=== PATIENT | female | born 1935 | race Caucasian/White ===

== ENCOUNTER 2018-05-16 03:26 | Inpatient (IN) | payer MEDICARE, OTHER ==
[2018-05-16] MEDS ORDERED: morphine 2 MG INJ IV (07:00)
[2018-05-16] MEDS ORDERED: NACL 0.9% 3 ML SYG IV (07:00)
[2018-05-16] MEDS ORDERED: ALBUTEROL/IPRATROPIUM (NEB) 3 ML AMP HHN (07:00)
[2018-05-16] MEDS: DEXTROSE 5%-0.45% NACL 1,000 ML IV ×2 (07:38→16:33)
[2018-05-16 08:18] LABS: ADD MAN DIFF? NO
[2018-05-16 08:25] LABS: WHITE BLOOD COUNT 4.2 10^3/ul (4.8-10.8)
[2018-05-16 08:25] LABS: EOSINOPHILS # 0.1 10^3/ul (0.0-0.5); EOSINOPHILS % 3.4 % (0.0-7.0); HEMATOCRIT 33.5 % (37.0-47.0); HEMOGLOBIN 10.9 g/dl (12.0-16.0); LYMPHOCYTES # 0.7 10^3/ul (0.8-2.9); MEAN CORPUSCULAR HEMOGLOBIN 30.4 pg (29.0-33.0); MEAN CORPUSCULAR HGB CONC 32.5 g/dl (32.0-37.0); MEAN CORPUSCULAR VOLUME 93.6 fl (82.0-101.0); MEAN PLATELET VOLUME 10.2 fl (7.4-10.4); MONOCYTE # 0.6 10^3/ul (0.3-0.9); MONOCYTES % 13.9 % (0.0-11.0); NEUTROPHIL # 2.7 10^3/ul (1.6-7.5); NEUTROPHILS % 64.2 % (39.0-77.0); PLATELET COUNT 187 10^3/UL (140-415); RED BLOOD COUNT 3.58 10^6/ul (4.20-5.40); RED CELL DISTRIBUTION WIDTH 12.7 % (11.5-14.5)
[2018-05-16] MEDS: FAMOTIDINE 20 MG INJ IV ×2 (08:41→21:24)
[2018-05-16] MEDS ORDERED: VITAMIN A & D 5 GM OINT PACKET TOP (08:45)
[2018-05-16 08:54] LABS: ALANINE AMINOTRANSFERASE 97 IU/L (13-69); ALBUMIN 2.9 g/dl (3.3-4.9); ALBUMIN/GLOBULIN RATIO 0.96; ALKALINE PHOSPHATASE 111 IU/L (42-121); ANION GAP 12 (8-16); ASPARTATE AMINO TRANSFERASE 161 IU/L (15-46); BILIRUBIN,INDIRECT 0.6 mg/dl (0-1.1); BILIRUBIN,TOTAL 0.6 mg/dl (0.2-1.3); BLOOD UREA NITROGEN 25 mg/dl (7-20); CALCIUM 8.4 mg/dl (8.4-10.2); CARBON DIOXIDE 27 mmol/L (21-31); CHLORIDE 104 mmol/L (97-110); CREATININE 1.18 mg/dl (0.44-1.00); GLUCOSE 113 mg/dl (70-220); PHOSPHORUS 3.4 mg/dl (2.5-4.9); POTASSIUM 3.2 mmol/L (3.5-5.1); SODIUM 140 mmol/L (135-144); TOTAL PROTEIN 5.9 g/dl (6.1-8.1)
[2018-05-16] MEDS ORDERED: OXYCODONE/ACETAMINOPHEN (5/325) TAB PO ×2 (16:30)
[2018-05-16] MEDS ORDERED: hydrALAzine 20 MG INJ IV (16:30)
[2018-05-16] MEDS ORDERED: EPHEDrine SULFATE 50 MG/5 ML SYG IV (16:30)
[2018-05-16] MEDS ORDERED: LABETALOL HCL 20MG INJ IV (16:30)
[2018-05-16] MEDS ORDERED: METOCLOPRAMIDE 10 MG INJ IV (16:30)
[2018-05-16] MEDS ORDERED: MEPERIDINE 25 MG INJ IV (16:30)
[2018-05-16] MEDS ORDERED: MIDAZOLAM 1 MG/ML 2 ML INJ IV (16:30)
[2018-05-16] MEDS ORDERED: DIPHENHYDRAMINE 50 MG INJ IV (16:30)
[2018-05-16] MEDS ORDERED: ONDANSETRON 4 MG INJ IV (16:30)
[2018-05-16] MEDS ORDERED: FENTAnyl 50 MCG/ML VIAL IV ×3 (16:30)
[2018-05-16] MEDS ORDERED: METOPROLOL 5 MG INJ IV (19:30)
[2018-05-16 19:52] LABS: INR 0.98; PROTIME 13.1 Sec (11.9-14.9)
[2018-05-16] MEDS: DIGOXIN 500 MCG INJ IV (21:19)
[2018-05-16] MEDS: ENOXAPARIN 80 MG/0.8 ML SYG SC (21:42)
[2018-05-16] MEDS: METOPROLOL 5 MG INJ IV (23:16)
[2018-05-17] MEDS: DIGOXIN 500 MCG INJ IV ×3 (01:44→13:00)
[2018-05-17 01:46] LABS: TROPONIN-I 0.053 ng/ml (0.000-0.120)
[2018-05-17] MEDS: POTASSIUM CHLORIDE 100 ML IVPB (01:51)
[2018-05-17] MEDS: DEXTROSE 5%-0.45% NACL 1,000 ML IV ×5 (01:53→23:50)
[2018-05-17 06:22] LABS: ADD MAN DIFF? NO
[2018-05-17 06:32] LABS: BASOPHILS % 0.2 % (0.0-2.0); HEMATOCRIT 36.8 % (37.0-47.0); HEMOGLOBIN 12.1 g/dl (12.0-16.0); LYMPHOCYTES # 0.7 10^3/ul (0.8-2.9); LYMPHOCYTES % 5.5 % (15.0-51.0); MEAN CORPUSCULAR HEMOGLOBIN 30.6 pg (29.0-33.0); MEAN CORPUSCULAR HGB CONC 32.9 g/dl (32.0-37.0); MEAN CORPUSCULAR VOLUME 92.9 fl (82.0-101.0); MEAN PLATELET VOLUME 10.3 fl (7.4-10.4); MONOCYTE # 0.7 10^3/ul (0.3-0.9); MONOCYTES % 5.1 % (0.0-11.0); NEUTROPHIL # 11.6 10^3/ul (1.6-7.5); NEUTROPHILS % 88.8 % (39.0-77.0); PLATELET COUNT 204 10^3/UL (140-415); RED BLOOD COUNT 3.96 10^6/ul (4.20-5.40)
[2018-05-17 06:32] LABS: WHITE BLOOD COUNT 13.1 10^3/ul (4.8-10.8)
[2018-05-17 06:54] LABS: INR 1.14; PROTIME 14.8 Sec (11.9-14.9); PT RATIO 1.2
[2018-05-17 07:09] LABS: ANION GAP 12 (8-16); BLOOD UREA NITROGEN 18 mg/dl (7-20); CALCIUM 8.6 mg/dl (8.4-10.2); CARBON DIOXIDE 25 mmol/L (21-31); CHLORIDE 107 mmol/L (97-110); CREATININE 1.14 mg/dl (0.44-1.00); GLUCOSE 141 mg/dl (70-220); MAGNESIUM 1.6 mg/dl (1.7-2.5); PHOSPHORUS 2.9 mg/dl (2.5-4.9); POTASSIUM 4.3 mmol/L (3.5-5.1); SODIUM 140 mmol/L (135-144)
[2018-05-17 07:11] LABS: TROPONIN-I 0.076 ng/ml (0.000-0.120)
[2018-05-17] MEDS: FAMOTIDINE 20 MG INJ IV ×2 (08:17→20:42)
[2018-05-17] MEDS: ENOXAPARIN 80 MG/0.8 ML SYG SC ×2 (08:40→20:43)
[2018-05-17] MEDS: IOHEXOL 14.3 MG(I)/ML (ADULT) BTL PO (11:35)
[2018-05-17] MEDS: MAGNESIUM SULFATE 2 GM/50 ML 50 ML IVPB (11:47)
[2018-05-17 15:15] LABS: TROPONIN-I 0.062 ng/ml (0.000-0.120)
[2018-05-18 07:03] LABS: ADD MAN DIFF? NO
[2018-05-18 07:17] LABS: WHITE BLOOD COUNT 5.1 10^3/ul (4.8-10.8)
[2018-05-18 07:17] LABS: BASOPHILS % 0.8 % (0.0-2.0); EOSINOPHILS # 0.1 10^3/ul (0.0-0.5); EOSINOPHILS % 2.2 % (0.0-7.0); HEMATOCRIT 32.9 % (37.0-47.0); HEMOGLOBIN 10.6 g/dl (12.0-16.0); LYMPHOCYTES # 0.8 10^3/ul (0.8-2.9); LYMPHOCYTES % 16.1 % (15.0-51.0); MEAN CORPUSCULAR HEMOGLOBIN 30.5 pg (29.0-33.0); MEAN CORPUSCULAR HGB CONC 32.2 g/dl (32.0-37.0); MEAN CORPUSCULAR VOLUME 94.5 fl (82.0-101.0); MEAN PLATELET VOLUME 10.4 fl (7.4-10.4); MONOCYTE # 0.5 10^3/ul (0.3-0.9); MONOCYTES % 9.4 % (0.0-11.0); NEUTROPHIL # 3.6 10^3/ul (1.6-7.5); NEUTROPHILS % 71.3 % (39.0-77.0); PLATELET COUNT 188 10^3/UL (140-415); RED BLOOD COUNT 3.48 10^6/ul (4.20-5.40)
[2018-05-18] MEDS: ONDANSETRON 4 MG INJ (07:29)
[2018-05-18] MEDS: hydrALAzine 20 MG INJ (07:29)
[2018-05-18] MEDS: PROPOFOL 20 ML (07:29)
[2018-05-18] MEDS: NEOSTIGMINE 3 MG/3 ML SYRINGE (07:29)
[2018-05-18 07:50] LABS: ANION GAP 11 (8-16); BLOOD UREA NITROGEN 17 mg/dl (7-20); CALCIUM 8.2 mg/dl (8.4-10.2); CARBON DIOXIDE 24 mmol/L (21-31); CHLORIDE 109 mmol/L (97-110); CREATININE 1.16 mg/dl (0.44-1.00); GLUCOSE 116 mg/dl (70-220); MAGNESIUM 2.2 mg/dl (1.7-2.5); PHOSPHORUS 2.6 mg/dl (2.5-4.9); POTASSIUM 3.5 mmol/L (3.5-5.1); SODIUM 140 mmol/L (135-144)
[2018-05-18] MEDS: FAMOTIDINE 20 MG INJ IV ×2 (08:29→20:07)
[2018-05-18] MEDS: DEXTROSE 5%-0.45% NACL 1,000 ML IV ×2 (08:30→20:07)
[2018-05-18] MEDS: ENOXAPARIN 80 MG/0.8 ML SYG SC ×2 (08:36→20:09)
[2018-05-19] MEDS: DEXTROSE 5%-0.45% NACL 1,000 ML IV ×2 (05:39→15:10)
[2018-05-19 06:00] LABS: ADD MAN DIFF? NO
[2018-05-19 06:10] LABS: BASOPHILS % 0.7 % (0.0-2.0); EOSINOPHILS # 0.2 10^3/ul (0.0-0.5); EOSINOPHILS % 4.8 % (0.0-7.0); HEMATOCRIT 34.3 % (37.0-47.0); HEMOGLOBIN 11.1 g/dl (12.0-16.0); LYMPHOCYTES # 1.1 10^3/ul (0.8-2.9); LYMPHOCYTES % 24.9 % (15.0-51.0); MEAN CORPUSCULAR HEMOGLOBIN 30.2 pg (29.0-33.0); MEAN CORPUSCULAR HGB CONC 32.4 g/dl (32.0-37.0); MEAN CORPUSCULAR VOLUME 93.2 fl (82.0-101.0); MEAN PLATELET VOLUME 10.2 fl (7.4-10.4); MONOCYTE # 0.4 10^3/ul (0.3-0.9); MONOCYTES % 10.1 % (0.0-11.0); NEUTROPHIL # 2.6 10^3/ul (1.6-7.5); PLATELET COUNT 195 10^3/UL (140-415); RED BLOOD COUNT 3.68 10^6/ul (4.20-5.40); RED CELL DISTRIBUTION WIDTH 12.8 % (11.5-14.5)
[2018-05-19 06:10] LABS: WHITE BLOOD COUNT 4.3 10^3/ul (4.8-10.8)
[2018-05-19 06:29] LABS: ANION GAP 11 (8-16); BLOOD UREA NITROGEN 12 mg/dl (7-20); CALCIUM 8.5 mg/dl (8.4-10.2); CARBON DIOXIDE 22 mmol/L (21-31); CHLORIDE 112 mmol/L (97-110); CREATININE 1.02 mg/dl (0.44-1.00); GLUCOSE 99 mg/dl (70-220); POTASSIUM 3.7 mmol/L (3.5-5.1); SODIUM 141 mmol/L (135-144)
[2018-05-19] MEDS: FAMOTIDINE 20 MG INJ IV ×2 (08:49→20:51)
[2018-05-19] MEDS: ENOXAPARIN 80 MG/0.8 ML SYG SC ×2 (08:54→21:00)
[2018-05-19] MEDS: hydrALAzine 20 MG INJ IV ×2 (12:15→18:11)
[2018-05-20] MEDS: DEXTROSE 5%-0.45% NACL 1,000 ML IV ×3 (01:07→12:42)
[2018-05-20 07:16] LABS: ADD MAN DIFF? NO
[2018-05-20 07:20] LABS: BASOPHILS % 0.5 % (0.0-2.0); EOSINOPHILS # 0.2 10^3/ul (0.0-0.5); EOSINOPHILS % 3.6 % (0.0-7.0); HEMATOCRIT 34.3 % (37.0-47.0); HEMOGLOBIN 11.3 g/dl (12.0-16.0); LYMPHOCYTES % 23.1 % (15.0-51.0); MEAN CORPUSCULAR HEMOGLOBIN 30.4 pg (29.0-33.0); MEAN CORPUSCULAR HGB CONC 32.9 g/dl (32.0-37.0); MEAN CORPUSCULAR VOLUME 92.2 fl (82.0-101.0); MEAN PLATELET VOLUME 10.4 fl (7.4-10.4); MONOCYTE # 0.5 10^3/ul (0.3-0.9); MONOCYTES % 10.8 % (0.0-11.0); NEUTROPHIL # 2.6 10^3/ul (1.6-7.5); NEUTROPHILS % 61.8 % (39.0-77.0); PLATELET COUNT 214 10^3/UL (140-415); RED BLOOD COUNT 3.72 10^6/ul (4.20-5.40); RED CELL DISTRIBUTION WIDTH 13.1 % (11.5-14.5)
[2018-05-20 07:20] LABS: WHITE BLOOD COUNT 4.2 10^3/ul (4.8-10.8)
[2018-05-20 07:52] LABS: ANION GAP 11 (8-16); BLOOD UREA NITROGEN 7 mg/dl (7-20); CALCIUM 8.4 mg/dl (8.4-10.2); CARBON DIOXIDE 21 mmol/L (21-31); CHLORIDE 112 mmol/L (97-110); CREATININE 0.92 mg/dl (0.44-1.00); GLUCOSE 101 mg/dl (70-220); POTASSIUM 3.4 mmol/L (3.5-5.1); SODIUM 141 mmol/L (135-144)
[2018-05-20] MEDS: FAMOTIDINE 20 MG INJ IV ×2 (08:28→21:29)
[2018-05-20] MEDS: hydrALAzine 20 MG INJ IV ×2 (08:33→16:55)
[2018-05-20] MEDS: ENOXAPARIN 80 MG/0.8 ML SYG SC ×2 (08:40→21:28)
[2018-05-20] MEDS: POTASSIUM CHLORIDE 100 ML IVPB ×2 (14:31→17:04)
[2018-05-20] MEDS: ONDANSETRON 4 MG INJ IV (21:29)
[2018-05-21] MEDS: DEXTROSE 5%-0.45% NACL 1,000 ML IV (04:47)
[2018-05-21 05:55] LABS: ADD MAN DIFF? NO
[2018-05-21 06:02] LABS: WHITE BLOOD COUNT 3.3 10^3/ul (4.8-10.8)
[2018-05-21 06:02] LABS: BASOPHILS % 0.9 % (0.0-2.0); EOSINOPHILS # 0.2 10^3/ul (0.0-0.5); EOSINOPHILS % 4.6 % (0.0-7.0); HEMATOCRIT 33.9 % (37.0-47.0); HEMOGLOBIN 11.2 g/dl (12.0-16.0); LYMPHOCYTES # 0.9 10^3/ul (0.8-2.9); LYMPHOCYTES % 25.9 % (15.0-51.0); MEAN CORPUSCULAR HEMOGLOBIN 30.7 pg (29.0-33.0); MEAN CORPUSCULAR VOLUME 92.9 fl (82.0-101.0); MEAN PLATELET VOLUME 10.3 fl (7.4-10.4); MONOCYTE # 0.5 10^3/ul (0.3-0.9); MONOCYTES % 14.6 % (0.0-11.0); NEUTROPHIL # 1.8 10^3/ul (1.6-7.5); NEUTROPHILS % 53.7 % (39.0-77.0); PLATELET COUNT 210 10^3/UL (140-415); RED BLOOD COUNT 3.65 10^6/ul (4.20-5.40); RED CELL DISTRIBUTION WIDTH 13.3 % (11.5-14.5)
[2018-05-21 06:35] LABS: ANION GAP 12 (8-16); BLOOD UREA NITROGEN 7 mg/dl (7-20); CALCIUM 8.4 mg/dl (8.4-10.2); CARBON DIOXIDE 21 mmol/L (21-31); CHLORIDE 113 mmol/L (97-110); CREATININE 1.04 mg/dl (0.44-1.00); GLUCOSE 84 mg/dl (70-220); POTASSIUM 3.6 mmol/L (3.5-5.1); SODIUM 142 mmol/L (135-144)
[2018-05-21] MEDS: ENOXAPARIN 80 MG/0.8 ML SYG SC (09:00)
[2018-05-21] MEDS: RANITIDINE 150 MG TAB PO (20:20)
[2018-05-21] MEDS: APIXABAN 5 MG TABLET PO (20:20)
[2018-05-21] MEDS: DORZOLAMIDE/TIMOLOL 10 ML OPH BOTH EYES (20:20)
[2018-05-22 05:49] LABS: ADD MAN DIFF? NO
[2018-05-22 05:52] LABS: BASOPHILS % 0.9 % (0.0-2.0); EOSINOPHILS # 0.2 10^3/ul (0.0-0.5); HEMATOCRIT 32.3 % (37.0-47.0); HEMOGLOBIN 10.6 g/dl (12.0-16.0); LYMPHOCYTES # 0.7 10^3/ul (0.8-2.9); LYMPHOCYTES % 23.2 % (15.0-51.0); MEAN CORPUSCULAR HEMOGLOBIN 30.6 pg (29.0-33.0); MEAN CORPUSCULAR HGB CONC 32.8 g/dl (32.0-37.0); MEAN CORPUSCULAR VOLUME 93.4 fl (82.0-101.0); MEAN PLATELET VOLUME 10.2 fl (7.4-10.4); MONOCYTE # 0.4 10^3/ul (0.3-0.9); MONOCYTES % 12.5 % (0.0-11.0); NEUTROPHIL # 1.8 10^3/ul (1.6-7.5); NEUTROPHILS % 57.1 % (39.0-77.0); PLATELET COUNT 207 10^3/UL (140-415); RED BLOOD COUNT 3.46 10^6/ul (4.20-5.40); RED CELL DISTRIBUTION WIDTH 13.4 % (11.5-14.5)
[2018-05-22 05:52] LABS: WHITE BLOOD COUNT 3.2 10^3/ul (4.8-10.8)
[2018-05-22 06:23] LABS: ANION GAP 12 (8-16); BLOOD UREA NITROGEN 6 mg/dl (7-20); CALCIUM 8.6 mg/dl (8.4-10.2); CARBON DIOXIDE 24 mmol/L (21-31); CHLORIDE 110 mmol/L (97-110); CREATININE 0.96 mg/dl (0.44-1.00); GLUCOSE 86 mg/dl (70-220); POTASSIUM 3.7 mmol/L (3.5-5.1); SODIUM 142 mmol/L (135-144)
[2018-05-22] MEDS: MULTIVIT/CA CARB/B CMPLX/FA TAB PO (09:11)
[2018-05-22] MEDS: FUROSEMIDE 40 MG TAB PO (09:12)
[2018-05-22] MEDS: METOPROLOL 50 MG TAB PO (09:12)
[2018-05-22] MEDS: RANITIDINE 150 MG TAB PO ×2 (09:13→21:29)
[2018-05-22] MEDS: APIXABAN 5 MG TABLET PO ×2 (09:13→21:30)
[2018-05-22] MEDS: AMLODIPINE 10 MG TAB PO (09:13)
[2018-05-22] MEDS: DORZOLAMIDE/TIMOLOL 10 ML OPH BOTH EYES ×2 (09:14→21:31)
[2018-05-22] MEDS: ATORVASTATIN 10 MG TAB PO (21:29)
[2018-05-23] MEDS: DORZOLAMIDE/TIMOLOL 10 ML OPH BOTH EYES ×2 (09:24→20:35)
[2018-05-23] MEDS: FUROSEMIDE 40 MG TAB PO (09:26)
[2018-05-23] MEDS: METOPROLOL 50 MG TAB PO (09:26)
[2018-05-23] MEDS: RANITIDINE 150 MG TAB PO ×2 (09:27→20:35)
[2018-05-23] MEDS: AMLODIPINE 10 MG TAB PO (09:27)
[2018-05-23] MEDS: MULTIVIT/CA CARB/B CMPLX/FA TAB PO (09:27)
[2018-05-23] MEDS: APIXABAN 5 MG TABLET PO ×2 (09:28→20:34)
[2018-05-23] MEDS: ONDANSETRON 4 MG INJ IV (16:34)
[2018-05-23] MEDS: ATORVASTATIN 10 MG TAB PO (20:33)
[2018-05-24] MEDS: FUROSEMIDE 40 MG TAB PO (08:47)
[2018-05-24] MEDS: APIXABAN 5 MG TABLET PO ×2 (08:47→22:09)
[2018-05-24] MEDS: MULTIVIT/CA CARB/B CMPLX/FA TAB PO (08:47)
[2018-05-24] MEDS: AMLODIPINE 10 MG TAB PO (08:47)
[2018-05-24] MEDS: METOPROLOL 50 MG TAB PO (08:48)
[2018-05-24] MEDS: RANITIDINE 150 MG TAB PO ×2 (08:48→22:08)
[2018-05-24] MEDS: DORZOLAMIDE/TIMOLOL 10 ML OPH BOTH EYES ×2 (08:49→22:09)
[2018-05-24] MEDS: ATORVASTATIN 10 MG TAB PO (22:09)
[2018-05-25] MEDS: FUROSEMIDE 20 MG TAB PO (05:43)
[2018-05-25] MEDS: MULTIVIT/CA CARB/B CMPLX/FA TAB PO (08:49)
[2018-05-25] MEDS: METOPROLOL (XL) 25 MG TAB PO (08:50)
[2018-05-25] MEDS: RANITIDINE 150 MG TAB PO ×2 (08:50→21:44)
[2018-05-25] MEDS: APIXABAN 5 MG TABLET PO ×2 (08:50→21:46)
[2018-05-25] MEDS: DORZOLAMIDE/TIMOLOL 10 ML OPH BOTH EYES ×2 (08:51→21:44)
[2018-05-25] MEDS: AMLODIPINE 10 MG TAB PO (08:51)
[2018-05-25] MEDS: ATORVASTATIN 10 MG TAB PO (21:44)
[2018-05-26] MEDS: FUROSEMIDE 20 MG TAB PO (05:40)
[2018-05-26] MEDS: RANITIDINE 150 MG TAB PO ×2 (08:54→21:15)
[2018-05-26] MEDS: MULTIVIT/CA CARB/B CMPLX/FA TAB PO (08:54)
[2018-05-26] MEDS: METOPROLOL (XL) 25 MG TAB PO (08:54)
[2018-05-26] MEDS: AMLODIPINE 10 MG TAB PO (08:55)
[2018-05-26] MEDS: APIXABAN 5 MG TABLET PO ×2 (08:55→21:13)
[2018-05-26] MEDS: DORZOLAMIDE/TIMOLOL 10 ML OPH BOTH EYES ×2 (08:55→21:13)
[2018-05-26] MEDS: ATORVASTATIN 10 MG TAB PO (21:13)
[2018-05-27 04:50] LABS: INR 1.18; PROTIME 15.2 Sec (11.9-14.9); PT RATIO 1.2
[2018-05-27 04:51] LABS: PARTIAL THROMBOPLASTIN TIME 37.4 Sec (25.0-35.0)
[2018-05-27] MEDS: FUROSEMIDE 20 MG TAB PO (05:23)
[2018-05-27] MEDS: DORZOLAMIDE/TIMOLOL 10 ML OPH BOTH EYES ×2 (08:19→20:33)
[2018-05-27] MEDS: MULTIVIT/CA CARB/B CMPLX/FA TAB PO (08:20)
[2018-05-27] MEDS: METOPROLOL (XL) 25 MG TAB PO (08:20)
[2018-05-27] MEDS: APIXABAN 5 MG TABLET PO ×2 (08:21→20:33)
[2018-05-27] MEDS: RANITIDINE 150 MG TAB PO ×2 (08:21→20:33)
[2018-05-27] MEDS: AMLODIPINE 10 MG TAB PO (08:21)
[2018-05-27] MEDS: ONDANSETRON 4 MG INJ IV (08:25)
[2018-05-27] MEDS: TRIMETHOBENZAMIDE 100 MG/ML VIAL IM (16:42)
[2018-05-27] MEDS ORDERED: ONDANSETRON 4 MG INJ IV (19:00)
[2018-05-27] MEDS: ATORVASTATIN 10 MG TAB PO (20:33)
[2018-05-28] MEDS: TRIMETHOBENZAMIDE 100 MG/ML VIAL IM (06:18)
[2018-05-28] MEDS: FUROSEMIDE 20 MG TAB PO (06:19)
[2018-05-28] MEDS: ONDANSETRON INJ 8 MG in SOD CHLORIDE 0.9% 50 ML IV (09:01)
[2018-05-28] MEDS: MULTIVIT/CA CARB/B CMPLX/FA TAB PO (09:08)
[2018-05-28] MEDS: APIXABAN 5 MG TABLET PO ×2 (09:09→21:00)
[2018-05-28] MEDS: METOPROLOL (XL) 25 MG TAB PO (09:09)
[2018-05-28] MEDS: RANITIDINE 150 MG TAB PO ×2 (09:09→21:34)
[2018-05-28] MEDS: AMLODIPINE 10 MG TAB PO (09:09)
[2018-05-28] MEDS: DORZOLAMIDE/TIMOLOL 10 ML OPH BOTH EYES ×2 (09:09→21:34)
[2018-05-28] MEDS: morphine LIQ (10 MG/5 ML) CUP PO (18:50)
[2018-05-28] MEDS: ATORVASTATIN 10 MG TAB PO (21:34)
[2018-05-29] MEDS: ACETAMINOPHEN 325 MG TAB GTB (01:42)
[2018-05-29] MEDS: DEXTROSE 5%-0.45% NACL 1,000 ML IV ×3 (01:42→21:14)
[2018-05-29 02:21] LABS: ADD MAN DIFF? NO
[2018-05-29 02:22] LABS: WHITE BLOOD COUNT 5.9 10^3/ul (4.8-10.8)
[2018-05-29 02:22] LABS: ABNORMAL IP MESSAGE 1; BASOPHILS % 0.3 % (0.0-2.0); EOSINOPHILS % 0.2 % (0.0-7.0); HEMOGLOBIN 11.7 g/dl (12.0-16.0); LYMPHOCYTES # 0.3 10^3/ul (0.8-2.9); LYMPHOCYTES % 4.7 % (15.0-51.0); MEAN CORPUSCULAR HEMOGLOBIN 30.3 pg (29.0-33.0); MEAN CORPUSCULAR HGB CONC 32.5 g/dl (32.0-37.0); MEAN CORPUSCULAR VOLUME 93.3 fl (82.0-101.0); MEAN PLATELET VOLUME 9.7 fl (7.4-10.4); MONOCYTE # 0.3 10^3/ul (0.3-0.9); MONOCYTES % 5.6 % (0.0-11.0); NEUTROPHIL # 5.2 10^3/ul (1.6-7.5); NEUTROPHILS % 88.9 % (39.0-77.0); PLATELET COUNT 267 10^3/UL (140-415); RED BLOOD COUNT 3.86 10^6/ul (4.20-5.40); RED CELL DISTRIBUTION WIDTH 13.4 % (11.5-14.5)
[2018-05-29 02:39] LABS: LACTIC ACID 0.7 mmol/L (0.5-2.0)
[2018-05-29 02:40] LABS: ALANINE AMINOTRANSFERASE 123 IU/L (13-69); ALBUMIN 3.2 g/dl (3.3-4.9); ALBUMIN/GLOBULIN RATIO 1.06; ALKALINE PHOSPHATASE 231 IU/L (42-121); ANION GAP 14 (8-16); ASPARTATE AMINO TRANSFERASE 238 IU/L (15-46); BILIRUBIN,INDIRECT 0.5 mg/dl (0-1.1); BILIRUBIN,TOTAL 0.5 mg/dl (0.2-1.3); BLOOD UREA NITROGEN 23 mg/dl (7-20); CALCIUM 8.4 mg/dl (8.4-10.2); CARBON DIOXIDE 28 mmol/L (21-31); CHLORIDE 101 mmol/L (97-110); CREATININE 1.17 mg/dl (0.44-1.00); GLUCOSE 154 mg/dl (70-220); MAGNESIUM 1.7 mg/dl (1.7-2.5); SODIUM 140 mmol/L (135-144); TOTAL PROTEIN 6.2 g/dl (6.1-8.1)
[2018-05-29 02:43] LABS: POTASSIUM 2.9 mmol/L (3.5-5.1)
[2018-05-29 02:59] LABS: POSITIVE DIFF @See below
[2018-05-29] MEDS: POTASSIUM CHLORIDE 100 ML IVPB ×2 (03:50→09:32)
[2018-05-29] MEDS: FUROSEMIDE 20 MG TAB PO (05:41)
[2018-05-29] MEDS: RANITIDINE 150 MG TAB PO ×2 (09:31→21:14)
[2018-05-29] MEDS: MULTIVIT/CA CARB/B CMPLX/FA TAB PO (09:31)
[2018-05-29] MEDS: AMLODIPINE 10 MG TAB PO (09:31)
[2018-05-29] MEDS: METOPROLOL (XL) 25 MG TAB PO (09:32)
[2018-05-29] MEDS: APIXABAN 5 MG TABLET PO ×2 (09:32→21:15)
[2018-05-29] MEDS: DORZOLAMIDE/TIMOLOL 10 ML OPH BOTH EYES ×2 (09:32→21:15)
[2018-05-29] MEDS: morphine LIQ (10 MG/5 ML) CUP PO (09:32)
[2018-05-29] MEDS: PIPER-TAZO 3.375 GM IV (PMX) 100 ML IVPB (17:37)
[2018-05-29] MEDS: ATORVASTATIN 10 MG TAB PO (21:14)
[2018-05-30] MEDS: PIPER-TAZO 3.375 GM IV (PMX) 100 ML IVPB ×4 (00:16→23:04)
[2018-05-30] MEDS: FUROSEMIDE 20 MG TAB PO (06:00)
[2018-05-30 07:05] LABS: ADD MAN DIFF? NO
[2018-05-30 07:12] LABS: BASOPHILS % 0.4 % (0.0-2.0); EOSINOPHILS # 0.1 10^3/ul (0.0-0.5); EOSINOPHILS % 0.9 % (0.0-7.0); HEMATOCRIT 33.6 % (37.0-47.0); HEMOGLOBIN 10.9 g/dl (12.0-16.0); LYMPHOCYTES % 13.8 % (15.0-51.0); MEAN CORPUSCULAR HEMOGLOBIN 30.5 pg (29.0-33.0); MEAN CORPUSCULAR HGB CONC 32.4 g/dl (32.0-37.0); MEAN CORPUSCULAR VOLUME 94.1 fl (82.0-101.0); MEAN PLATELET VOLUME 10.1 fl (7.4-10.4); MONOCYTE # 0.7 10^3/ul (0.3-0.9); MONOCYTES % 9.3 % (0.0-11.0); NEUTROPHIL # 5.3 10^3/ul (1.6-7.5); NEUTROPHILS % 75.3 % (39.0-77.0); PLATELET COUNT 242 10^3/UL (140-415); RED BLOOD COUNT 3.57 10^6/ul (4.20-5.40); RED CELL DISTRIBUTION WIDTH 13.8 % (11.5-14.5)
[2018-05-30 07:41] LABS: PHOSPHORUS 2.8 mg/dl (2.5-4.9)
[2018-05-30 07:41] LABS: MAGNESIUM 1.7 mg/dl (1.7-2.5)
[2018-05-30 07:52] LABS: ALANINE AMINOTRANSFERASE 63 IU/L (13-69); ALBUMIN 2.8 g/dl (3.3-4.9); ALBUMIN/GLOBULIN RATIO 0.96; ALKALINE PHOSPHATASE 162 IU/L (42-121); ANION GAP 13 (8-16); ASPARTATE AMINO TRANSFERASE 52 IU/L (15-46); BILIRUBIN,INDIRECT 0.3 mg/dl (0-1.1); BILIRUBIN,TOTAL 0.3 mg/dl (0.2-1.3); BLOOD UREA NITROGEN 31 mg/dl (7-20); CARBON DIOXIDE 28 mmol/L (21-31); CHLORIDE 102 mmol/L (97-110); CREATININE 1.67 mg/dl (0.44-1.00); GLUCOSE 165 mg/dl (70-220); POTASSIUM 3.1 mmol/L (3.5-5.1); SODIUM 140 mmol/L (135-144); TOTAL PROTEIN 5.7 g/dl (6.1-8.1)
[2018-05-30] MEDS: APIXABAN 5 MG TABLET PO (08:33)
[2018-05-30] MEDS: MULTIVIT/CA CARB/B CMPLX/FA TAB PO (08:34)
[2018-05-30] MEDS: AMLODIPINE 10 MG TAB PO (08:34)
[2018-05-30] MEDS: RANITIDINE 150 MG TAB PO (08:35)
[2018-05-30] MEDS: METOPROLOL (XL) 25 MG TAB PO (08:35)
[2018-05-30] MEDS: DEXTROSE 5%-0.45% NACL 1,000 ML IV ×2 (08:36→17:55)
[2018-05-30] MEDS: DORZOLAMIDE/TIMOLOL 10 ML OPH BOTH EYES ×2 (09:00→20:18)
[2018-05-30] MEDS: LIDOCAINE 1% (MPF) 5 ML VIAL SC (15:15)
[2018-05-30] MEDS: ATORVASTATIN 10 MG TAB PO (20:18)
[2018-05-31] MEDS: DEXTROSE 5%-0.45% NACL 1,000 ML IV ×3 (05:04→19:28)
[2018-05-31] MEDS: PIPER-TAZO 3.375 GM IV (PMX) 100 ML IVPB (05:04)
[2018-05-31] MEDS: FUROSEMIDE 20 MG TAB PO (05:07)
[2018-05-31] MEDS: RANITIDINE 150 MG TAB PO (08:31)
[2018-05-31] MEDS: DORZOLAMIDE/TIMOLOL 10 ML OPH BOTH EYES ×2 (08:31→20:05)
[2018-05-31] MEDS: MULTIVIT/CA CARB/B CMPLX/FA TAB PO (08:31)
[2018-05-31] MEDS: AMLODIPINE 10 MG TAB PO (08:32)
[2018-05-31] MEDS: METOPROLOL (XL) 25 MG TAB PO (08:32)
[2018-05-31 11:43] LABS: ADD MAN DIFF? NO
[2018-05-31 11:48] LABS: BASOPHILS % 0.6 % (0.0-2.0); EOSINOPHILS # 0.2 10^3/ul (0.0-0.5); EOSINOPHILS % 4.5 % (0.0-7.0); HEMOGLOBIN 10.5 g/dl (12.0-16.0); LYMPHOCYTES # 0.7 10^3/ul (0.8-2.9); LYMPHOCYTES % 13.4 % (15.0-51.0); MEAN CORPUSCULAR HEMOGLOBIN 30.6 pg (29.0-33.0); MEAN CORPUSCULAR HGB CONC 32.8 g/dl (32.0-37.0); MEAN CORPUSCULAR VOLUME 93.3 fl (82.0-101.0); MEAN PLATELET VOLUME 10.3 fl (7.4-10.4); MONOCYTE # 0.5 10^3/ul (0.3-0.9); MONOCYTES % 10.1 % (0.0-11.0); NEUTROPHIL # 3.4 10^3/ul (1.6-7.5); NEUTROPHILS % 71.2 % (39.0-77.0); PLATELET COUNT 253 10^3/UL (140-415); RED BLOOD COUNT 3.43 10^6/ul (4.20-5.40); RED CELL DISTRIBUTION WIDTH 13.9 % (11.5-14.5)
[2018-05-31 11:48] LABS: WHITE BLOOD COUNT 4.8 10^3/ul (4.8-10.8)
[2018-05-31 12:07] LABS: ANION GAP 12 (8-16); BLOOD UREA NITROGEN 26 mg/dl (7-20); CALCIUM 8.2 mg/dl (8.4-10.2); CARBON DIOXIDE 28 mmol/L (21-31); CHLORIDE 103 mmol/L (97-110); CREATININE 1.24 mg/dl (0.44-1.00); GLUCOSE 175 mg/dl (70-220); POTASSIUM 3.2 mmol/L (3.5-5.1); SODIUM 140 mmol/L (135-144)
[2018-05-31] MEDS: LEVOFLOXACIN 750MG/D5W (PMX) 150 ML IVPB (12:58)
[2018-05-31] MEDS: POTASSIUM CHLORIDE 20 MEQ POWDER FOR ORAL SOLN GTB (14:49)
[2018-05-31] MEDS: MAGNESIUM SULFATE 2 GM/50 ML 50 ML IVPB (16:06)
[2018-05-31] MEDS: ATORVASTATIN 10 MG TAB PO (20:05)
[2018-05-31] MEDS: APIXABAN 5 MG TABLET PO (20:06)
[2018-06-01] MEDS: FUROSEMIDE 20 MG TAB PO (05:09)
[2018-06-01] MEDS: morphine LIQ (10 MG/5 ML) CUP PO (05:09)
[2018-06-01] MEDS: DEXTROSE 5%-0.45% NACL 1,000 ML IV ×2 (05:11→20:18)
[2018-06-01] MEDS: PROPOFOL 60 ML (07:43)
[2018-06-01] MEDS: LIDOCAINE 2% (SDV) 5 ML INJ (07:43)
[2018-06-01] MEDS: RANITIDINE 150 MG TAB PO (08:27)
[2018-06-01] MEDS: APIXABAN 5 MG TABLET PO ×2 (08:27→20:18)
[2018-06-01] MEDS: METOPROLOL (XL) 25 MG TAB PO (08:28)
[2018-06-01] MEDS: MULTIVIT/CA CARB/B CMPLX/FA TAB PO (08:28)
[2018-06-01] MEDS: AMLODIPINE 10 MG TAB PO (08:28)
[2018-06-01] MEDS: DORZOLAMIDE/TIMOLOL 10 ML OPH BOTH EYES ×2 (08:28→20:19)
[2018-06-01] MEDS: ATORVASTATIN 10 MG TAB PO (20:18)
[2018-06-02] MEDS: DEXTROSE 5%-0.45% NACL 1,000 ML IV ×2 (05:58→17:35)
[2018-06-02] MEDS: FUROSEMIDE 20 MG TAB PO (05:58)
[2018-06-02] MEDS: APIXABAN 5 MG TABLET PO ×2 (08:48→21:13)
[2018-06-02] MEDS: DORZOLAMIDE/TIMOLOL 10 ML OPH BOTH EYES ×2 (08:48→21:14)
[2018-06-02] MEDS: RANITIDINE 150 MG TAB PO (08:48)
[2018-06-02] MEDS: MULTIVIT/CA CARB/B CMPLX/FA TAB PO (08:48)
[2018-06-02] MEDS: AMLODIPINE 10 MG TAB PO (08:53)
[2018-06-02] MEDS: METOPROLOL (XL) 25 MG TAB PO (08:54)
[2018-06-02] MEDS: LEVOFLOXACIN 500MG/D5W (PMX) 100 ML IVPB (12:24)
[2018-06-02] MEDS: ATORVASTATIN 10 MG TAB PO (21:13)
[2018-06-03] MEDS: DEXTROSE 5%-0.45% NACL 1,000 ML IV ×3 (03:54→14:56)
[2018-06-03] MEDS: FUROSEMIDE 20 MG TAB PO (05:42)
[2018-06-03] MEDS: METOPROLOL (XL) 25 MG TAB PO (08:35)
[2018-06-03] MEDS: MULTIVIT/CA CARB/B CMPLX/FA TAB PO (08:35)
[2018-06-03] MEDS: RANITIDINE 150 MG TAB PO (08:35)
[2018-06-03] MEDS: DORZOLAMIDE/TIMOLOL 10 ML OPH BOTH EYES ×2 (08:35→21:35)
[2018-06-03] MEDS: APIXABAN 5 MG TABLET PO ×2 (08:36→21:35)
[2018-06-03] MEDS: AMLODIPINE 10 MG TAB PO (08:36)
[2018-06-03] MEDS: LEVOFLOXACIN 750 MG TABLET GTB (09:08)
[2018-06-03] MEDS: ATORVASTATIN 10 MG TAB PO (21:35)
[2018-06-04] MEDS: DEXTROSE 5%-0.45% NACL 1,000 ML IV ×2 (00:21→10:42)
[2018-06-04] MEDS: FUROSEMIDE 20 MG TAB PO ×2 (05:55→05:57)
[2018-06-04] MEDS: MULTIVIT/CA CARB/B CMPLX/FA TAB PO (08:23)
[2018-06-04] MEDS: AMLODIPINE 10 MG TAB PO (08:24)
[2018-06-04] MEDS: ACETAMINOPHEN 325 MG TAB GTB (08:24)
[2018-06-04] MEDS: METOPROLOL (XL) 25 MG TAB PO (08:24)
[2018-06-04] MEDS: RANITIDINE 150 MG TAB PO (08:24)
[2018-06-04] MEDS: APIXABAN 5 MG TABLET PO ×2 (08:24→20:59)
[2018-06-04] MEDS: DORZOLAMIDE/TIMOLOL 10 ML OPH BOTH EYES ×2 (08:25→20:59)
[2018-06-04] MEDS ORDERED: VITAMIN A & D 5 GM OINT PACKET TOP (12:17)
[2018-06-04] MEDS: POLYETHYLENE GLYCOL 17 GM PACKET GTB (14:43)
[2018-06-04] MEDS: ATORVASTATIN 10 MG TAB PO (20:59)
[2018-06-05] MEDS: FUROSEMIDE 20 MG TAB PO (05:34)
[2018-06-05] MEDS: LEVOFLOXACIN 750 MG TABLET GTB (08:54)
[2018-06-05] MEDS: APIXABAN 5 MG TABLET PO (08:54)
[2018-06-05] MEDS: DORZOLAMIDE/TIMOLOL 10 ML OPH BOTH EYES (08:54)
[2018-06-05] MEDS: METOPROLOL (XL) 25 MG TAB PO (08:55)
[2018-06-05] MEDS: RANITIDINE 150 MG TAB PO (08:55)
[2018-06-05] MEDS: AMLODIPINE 10 MG TAB PO (08:55)
[2018-06-05] MEDS: MULTIVIT/CA CARB/B CMPLX/FA TAB PO (08:55)
[2018-06-05] MEDS: morphine LIQ (10 MG/5 ML) CUP PO (11:49)
[2018-06-05] MEDS: TRIMETHOBENZAMIDE 100 MG/ML VIAL IM (12:52)
== END 2018-06-05 17:00 | DRG 375 ==
LOC: MS2 05-20 13:35 → TEL 03:26
PROC: 0DB48ZX Excision of Esophagogastric Junction, Via Natural or Artificial Opening Endoscopic, Diagnostic (ICD-10-PCS; principal; 2018-05-16 15:00)
PROC: 0DB68ZX Excision of Stomach, Via Natural or Artificial Opening Endoscopic, Diagnostic (ICD-10-PCS; 2018-05-16 15:00)
PROC: 0DH63UZ Insertion of Feeding Device into Stomach, Percutaneous Approach (ICD-10-PCS; 2018-05-16 15:50)
PROC: 05HY33Z Insertion of Infusion Device into Upper Vein, Percutaneous Approach (ICD-10-PCS; 2018-05-16 15:50)
DX: C16.0 Malignant neoplasm of cardia (principal); D68.8 Other specified coagulation defects; R78.81 Bacteremia; K25.9 Gastric ulcer, unspecified as acute or chronic, without hemorrhage or perforation; I10 Essential (primary) hypertension; E78.5 Hyperlipidemia, unspecified; K22.2 Esophageal obstruction; D64.9 Anemia, unspecified; N19 Unspecified kidney failure; I48.0 Paroxysmal atrial fibrillation; B96.1 Klebsiella pneumoniae [K. pneumoniae] as the cause of diseases classified elsewhere
CPT/HCPCS: 36569; 71045; 76937; 80048; 80053; 83605; 83735; 84100; 84443; 84484; 85025; 85610; 85730; 87040; 87081; 88305; 88312; 88313; 88342; 92610; 93005; 93306; 97110; 97116; 97161; 97530